=== PATIENT | male | born 1960 | race Caucasian/White ===

== ENCOUNTER 2018-11-22 14:37 | Inpatient (IN) ==
[2018-11-22 14:52] VITALS: BMI 34.2
[2018-11-22 14:59] LABS: BASOPHILS # (AUTO) 0.1 X10^3/uL (0.0-0.1); BASOPHILS % (AUTO) 0.8 % (0.2-1.0); EOSINOPHILS # (AUTO) 0.1 x10^3/uL (0.0-0.2); EOSINOPHILS % (AUTO) 1.8 % (0.9-2.9); HEMATOCRIT 50.9 % (42.0-54.0); HEMOGLOBIN 17.4 g/dL (13.5-18.0); LYMPHOCYTES # (AUTO) 1.5 X10^3/uL (1.3-2.9); LYMPHOCYTES % (AUTO) 18.3 % (21.0-51.0); MEAN CORPUSCULAR HGB CONC 34.1 g/dL (33.0-35.0); MEAN CORPUSCULAR VOLUME 93.9 fL (80.0-100.0); MEAN PLATELET VOLUME 7.6 fL (7.4-11.0); MONOCYTES # (AUTO) 0.8 x10^3/uL (0.3-0.8); MONOCYTES % (AUTO) 9.9 % (0.0-13.0); NEUTROPHILS # (AUTO) 5.7 x10^3/uL (2.2-4.8); NEUTROPHILS % (AUTO) 69.2 % (42.0-75.0); PLATELET COUNT 202 X10^3/uL (150.0-450.0); RED BLOOD COUNT 5.43 X10^6/uL (4.7-6.0); RED CELL DISTRIBUTION WIDTH 16.1 % (11.6-16.5); WHITE BLOOD COUNT 8.2 X10^3/uL (3.6-10.0)
[2018-11-22] MEDS ORDERED: NS 1000 ML 1,000 ML ONE (15:04)
[2018-11-22 15:20] LABS: BLOOD UREA NITROGEN 36 mg/dL (7-18); CALCIUM 9.7 mg/dL (8.5-10.1); CARBON DIOXIDE 25.7 mmol/L (21-32); CHLORIDE 102 mmol/L (98-107); COR NA(FOR HYPERGLY) 139 mmol/L (136-145); CREATININE 1.19 mg/dL (0.70-1.30); SODIUM 139 mmol/L (136-145); TROPONIN I 0.04 ng/mL (0-1.5); eGFR NON BLACK RACES > 60 (>60)
--- NOTE | 2018-11-22 15:21 | RAD ---
History: Atrial fib and shortness of breath Study: Portable AP chest Comparison: CT chest dated November 13 Findings: There is mild cardiomegaly. The lungs are hyperinflated and grossly clear. There is no edema or effusion evident. Impression: Mild cardiomegaly and probable COPD. No definite acute disease. Reported By:
[2018-11-22 15:22] LABS: ALANINE AMINOTRANSFERASE 43 Units/L (12-78); ALKALINE PHOSPHATASE 103 Units/L (46-116); ASPARTATE AMINO TRANSFERASE 27 Units/L (15-37); CKMB % 2.6 % (<4); CREATINE KINASE 78 Units/L (39-308); MAGNESIUM 2.2 mg/dL (1.7-2.9); TOTAL PROTEIN 7.5 g/dL (6.4-8.2)
[2018-11-22] MEDS ORDERED: CARDIZEM INJ 50 MG VIAL IVP ONE ×2 (15:28→16:34)
[2018-11-22] MEDS ORDERED: CARDIZEM INJ 50 MG VIAL ONE (15:30)
[2018-11-22] MEDS ORDERED: NS 100 ML IV 100 ML ONE (15:48)
[2018-11-22] MEDS ORDERED: CARDIZEM INJ 125 MG VIAL ONE (15:48)
[2018-11-22] MEDS: CARDIZEM INJ 125 MG VIAL 125 MG in NS 100 ML IV 100 ML IV PRN ×2 (15:55→23:39)
[2018-11-22] MEDS ORDERED: NS 1000 ML 1,000 ML IV SCH (16:00)
--- NOTE | 2018-11-22 16:16 | DR.ARRHYTH ---
HPI Time Seen Time Seen by Provider: 11/22/18 14:53 PCP Primary Care Physician: WHIT PAINTER Complaint Chief Complaint Doctor Comments: Patient was sent to get a cardiac echo per primary care physician. He was noted to be in A.Fib with RVR. He was sent to the ED for evauation. Patient admits to a history of lung disease and two pack per days for twenty plus years. Chief Complaint:: PT. WAS HERE FOR AN OUT-PATIENT ECHO. PT. NOTED TO BE IN A- FIB, NEW ONSET. PT. BROUGHT TO THE ER FOR FURTHER EVALUATION. PT. STATES HE HAS HAD SHORTNESS OF BREATH SINCE AUGUST. DENIES CHEST PAIN. Source History Provided: Patient Mode of Arrival Mode of Arrival: Ambulatory Timing Onset of Chief Complaint: 11/22/18 Came on: Gradually Symptoms: Present Now Duration Duration: Since Onset Context Onset: At Rest and With Light Exertion Possible Medication-Induced: Yes Possible Drug-Induced: No History: None Severity Severity: Rapid If Chest Pain Duration since onset: Weeks PMH PMH Past Medical History: Yes Past Medical History: CHF, Dyslipidemia and Hypertension Past Surgical History: Yes Surgical History: Other Past Surgical History Comment: RIGHT KNEE Family History History of Family Medical Conditions: Yes Family Medical History: Hypertension Social History Does patient currently use any type of tobacco product: No Have you used tobacco products in the last 12 months: No Type of Tobacco Use: None Does any household member use tobacco: No Alcohol Use: None Do you use any recreational Drugs:: No Lives With: Family Lives Where: Home infectious screening In the last 2 months have you had wt loss of >10#?: NO Have you had fever, night sweats or hemotysis?: No Have you traveled outside the country in the last 6 months?: No Isolation: Standard ROS Review of Systems Constitutional: No Symptoms Reported Eyes: No Symptoms Reported ENTM: No Symptoms Reported Respiratoy: Dry Cough (years) and Short of Breath (years); negative Hemoptysis Cardiovascular: Palpitations Gastrointestinal/Abdominal: No Symptoms Reported Genitourinary: No Symptoms Reported Neurological: No Symptoms Reported Musculoskeletal: No Symptoms Reported Integumentary: No Symptoms Reported Hematologic/Lymphatic: No Symptoms Reported Endocrine: No Symptoms Reported Psychiatric: No Symptoms Reported All Other Systems: Reviewed and Negative PE Vitals Vital Signs: Pulse Pulse Resp BP BP Pulse Ox 11/22/18 16:00 113 H 23 116/80 95 11/22/18 15:31 122 H 21 151/77 96 11/22/18 15:10 144 H 17 156/95 97 11/22/18 14:49 158 H 22 141/97 97 General Limitations: No Limitations General Appearance: Alert and In No Apparent Distress Head Head Exam: Normal Inspection, Atraumatic and Normocephalic Eyes Eyes: Normal and Pale Conjunctiva Eye exam: Normal Appearance, PERRL and EOMI; negative Scleral Icterus, Conjunctival Injection, Nystagmus, Mydrasis, Periorbital Swelling and Periorbital Tenderness ENT ENT Exam: Normal Exam, Normal Oropharynx, Normal External Ear Exam, Mucous Membranes Moist and TM's Normal Bilaterally Neck Neck Exam: Normal Inspection, Full ROM and Trachea Midline; negative Tenderness, Meningismus and Lymphadenopathy Chest Chest Inspection: Normal Inspection and Symmetric Chest Wall Rise Respiratory Respiratory Exam: Prolonged Expiratory Phase; negative Normal Lung Sounds Bilat (wheeze bilaterally), Accessory Muscle Use, Chest Wall Tenderness, Respiratory Distress and Stridor Respiratory Exam: Bilateral: Wheezing Cardiovascular Cardiovascular Exam: Tachycardia, Irregular Rhythm, Normal Heart Sounds and JVD; negative Systolic Murmur, Diastolic Murmur, Rubs, Gallop and Clicks Peripheral Pulse: Carotid (R): 3+ and Radial (R): 3+ Abdominal Exam Abdominal Exam: Normal Inspection, Normal Bowel Sounds, Soft, Distention, Dimnished Bowel Sounds and Hypoactive Bowel Sounds; negative Tenderness, Guarding, Rebound, Rigidity, Hyperactive Bowel Sounds, Organomegaly, Trauma, Ascites and Hernia Abdominal Tenderness: negative RUQ, RLQ, LUQ, LLQ, Epigastrium and Suprapubic Rectal Rectal Exam: negative Deferred Extremities Extremities Exam: Normal Inspection, Full ROM and Normal Capillary Refill; negative Edema and Joint Swelling Back Back Exam: Normal Inspection and Full ROM; negative Tenderness, (R) CVA Tenderness, (L) CVA Tenderness, Muscle Spasm, Paraspinal Tenderness, Vertebral Tenderness and Rashes Neurologic Neurological Exam: Alert, Oriented X3, CN II-XII Intact, Normal Gait and Reflexes Normal Psychiatric Psychiatric Exam: Normal Affect and Normal Mood; negative Homicidal Ideation and Suicidal Ideation Skin Skin Exam: Warm, Dry, Intact and Normal Color MDM Differential Diagnosis Atrial: Atrial Fibrillation, Atrial Flutter, PAC's and Sinus Tachycardia Miscellaneous: Hyperthyroidism COURSE Treatment Treatment: Normal saline, cardiazem, ROR Labs Reviewed Result Diagrams: 11/22/18 14:45 11/22/18 14:45 Laboratory: WBC 8.2 X10^3/uL (3.6-10.0) 11/22/18 14:45 RBC 5.43 X10^6/uL (4.7-6.0) 11/22/18 14:45 Hgb 17.4 g/dL (13.5-18.0) 11/22/18 14:45 Hct 50.9 % (42.0-54.0) 11/22/18 14:45 MCV 93.9 fL (80.0-100.0) 11/22/18 14:45 MCH 32.0 pg (27.0-34.0) 11/22/18 14:45 MCHC 34.1 g/dL (33.0-35.0) 11/22/18 14:45 RDW 16.1 % (11.6-16.5) 11/22/18 14:45 Plt Count 202 X10^3/uL (150.0-450.0) 11/22/18 14:45 MPV 7.6 fL (7.4-11.0) 11/22/18 14:45 Neut % (Auto) 69.2 % (42.0-75.0) 11/22/18 14:45 Lymph % (Auto) 18.3 % (21.0-51.0) L 11/22/18 14:45 Lee % (Auto) 9.9 % (0.0-13.0) 11/22/18 14:45 Eos % (Auto) 1.8 % (0.9-2.9) 11/22/18 14:45 Baso % (Auto) 0.8 % (0.2-1.0) 11/22/18 14:45 Neut # (Auto) 5.7 x10^3/uL (2.2-4.8) H 11/22/18 14:45 Lymph # (Auto) 1.5 X10^3/uL (1.3-2.9) 11/22/18 14:45 Lee # (Auto) 0.8 x10^3/uL (0.3-0.8) 11/22/18 14:45 Eos # (Auto) 0.1 x10^3/uL (0.0-0.2) 11/22/18 14:45 Baso # (Auto) 0.1 X10^3/uL (0.0-0.1) 11/22/18 14:45 Absolute Nucleated RBC 0.1 /100WBC 11/22/18 14:45 INR Target Range - 11/22/18 14:45 INR 1.09 (0.8-1.3) 11/22/18 14:45 APTT 27.4 SECONDS (22.9-36.5) 11/22/18 14:45 PTT Comment - 11/22/18 14:45 Sodium 139 mmol/L (136-145) 11/22/18 14:45 Corrected Sodium 139 mmol/L (136-145) 11/22/18 14:45 Potassium 4.3 mmol/L (3.5-5.1) 11/22/18 14:45 Chloride 102 mmol/L (98-107) 11/22/18 14:45 Carbon Dioxide 25.7 mmol/L (21-32) 11/22/18 14:45 BUN 36 mg/dL (7-18) H 11/22/18 14:45 Creatinine 1.19 mg/dL (0.70-1.30) 11/22/18 14:45 Est GFR (MDRD) Af Amer > 60 (>60) 11/22/18 14:45 Est GFR (MDRD) Non-Af > 60 (>60) 11/22/18 14:45 Glucose 118 mg/dL (65-99) H 11/22/18 14:45 Calcium 9.7 mg/dL (8.5-10.1) 11/22/18 14:45 Corrected Calcium TNP 11/22/18 14:45 Magnesium 2.2 mg/dL (1.7-2.9) 11/22/18 14:45 Total Bilirubin 1.70 mg/dL (0.2-1.0) H 11/22/18 14:45 AST 27 Units/L (15-37) 11/22/18 14:45 ALT 43 Units/L (12-78) 11/22/18 14:45 Alkaline Phosphatase 103 Units/L (46-116) 11/22/18 14:45 Creatine Kinase 78 Units/L (39-308) 11/22/18 14:45 CK-MB (CK-2) 2.0 ng/mL (0-4.0) 11/22/18 14:45 CK/CKMB % Calc 2.6 % (<4) 11/22/18 14:45 Troponin I 0.04 ng/mL (0-1.5) 11/22/18 14:45 Total Protein 7.5 g/dL (6.4-8.2) 11/22/18 14:45 Albumin 4.0 g/dL (3.4-5.0) 11/22/18 14:45 Globulin 3.5 g/dL (2.5-4.5) 11/22/18 14:45 Albumin/Globulin Ratio 1.1 Ratio (1.1-2.1) 11/22/18 14:45
[2018-11-22] MEDS ORDERED: CARDIZEM INJ 125 MG VIAL 125 MG in NS 100 ML IV 100 ML IV PRN (16:34)
[2018-11-22] MEDS ORDERED: XOPENEX 1.25 MG/3 ML NEBULE NEB PRN (18:18)
[2018-11-22] MEDS ORDERED: AMBIEN PO SCH (21:00)
[2018-11-22 21:13] LABS: CKMB % 2.8 % (<4); CREATINE KINASE MB 1.7 ng/mL (0-4.0); TROPONIN I 0.04 ng/mL (0-1.5)
[2018-11-22] MEDS: LASIX PO SCH (22:13)
[2018-11-23 05:52] LABS: BASOPHILS # (AUTO) 0.1 X10^3/uL (0.0-0.1); BASOPHILS % (AUTO) 0.9 % (0.2-1.0); EOSINOPHILS # (AUTO) 0.2 x10^3/uL (0.0-0.2); EOSINOPHILS % (AUTO) 2.3 % (0.9-2.9); HEMATOCRIT 45.5 % (42.0-54.0); HEMOGLOBIN 15.5 g/dL (13.5-18.0); LYMPHOCYTES # (AUTO) 1.2 X10^3/uL (1.3-2.9); LYMPHOCYTES % (AUTO) 15.5 % (21.0-51.0); MEAN CORPUSCULAR HEMOGLOBIN 32.2 pg (27.0-34.0); MEAN CORPUSCULAR HGB CONC 34.1 g/dL (33.0-35.0); MEAN CORPUSCULAR VOLUME 94.5 fL (80.0-100.0); MEAN PLATELET VOLUME 7.8 fL (7.4-11.0); MONOCYTES # (AUTO) 0.9 x10^3/uL (0.3-0.8); MONOCYTES % (AUTO) 10.6 % (0.0-13.0); NEUTROPHILS # (AUTO) 5.7 x10^3/uL (2.2-4.8); NEUTROPHILS % (AUTO) 70.7 % (42.0-75.0); PLATELET COUNT 192 X10^3/uL (150.0-450.0); RED BLOOD COUNT 4.81 X10^6/uL (4.7-6.0); RED CELL DISTRIBUTION WIDTH 15.9 % (11.6-16.5)
[2018-11-23 06:30] LABS: ALANINE AMINOTRANSFERASE 35 Units/L (12-78); ALBUMIN 3.5 g/dL (3.4-5.0); ALKALINE PHOSPHATASE 92 Units/L (46-116); ASPARTATE AMINO TRANSFERASE 20 Units/L (15-37); BLOOD UREA NITROGEN 35 mg/dL (7-18); CALCIUM 9.2 mg/dL (8.5-10.1); CARBON DIOXIDE 23.7 mmol/L (21-32); CHLORIDE 103 mmol/L (98-107); COR NA(FOR HYPERGLY) 139 mmol/L (136-145); CREATINE KINASE 43 Units/L (39-308); CREATINE KINASE MB 1.3 ng/mL (0-4.0); CREATININE 0.96 mg/dL (0.70-1.30); SODIUM 138 mmol/L (136-145); TOTAL PROTEIN 6.6 g/dL (6.4-8.2); TROPONIN I 0.04 ng/mL (0-1.5); eGFR NON BLACK RACES > 60 (>60)
[2018-11-23] MEDS ORDERED: CRESTOR TAB 10 MG PO SCH (09:00)
[2018-11-23] MEDS: LASIX PO SCH (09:15)
[2018-11-23] MEDS: CARDIZEM INJ 125 MG VIAL 125 MG in NS 100 ML IV 100 ML IV PRN (12:29)
[2018-11-23] MEDS ORDERED: BENICAR TAB 40 MG PO ONE (17:33)
[2018-11-23] MEDS ORDERED: BENICAR TAB 40 MG PO SCH (18:00)
[2018-11-23 18:23] VITALS: BP 152/83
== END 2018-11-23 18:10 | disposition short-term general hospital (02) | DRG 310 ==
LOC: ER 14:37 → ICU 16:31
PROVIDERS: ADMIT Internal Medicine; ATTEND Internal Medicine
DX: I10 Essential (primary) hypertension; R06.02 Shortness of breath; R93.1 Abnormal findings on diagnostic imaging of heart and coronary circulation; E78.2 Mixed hyperlipidemia; I48.91 Unspecified atrial fibrillation; R93.5 Abnormal findings on diagnostic imaging of other abdominal regions, including retroperitoneum; R91.1 Solitary pulmonary nodule
CPT/HCPCS: 36415; 71010; 71045; 80053; 82550; 82553; 83735; 84484; 85025; 85378; 85610; 85730; 93005; 93041; 96365; 96374; 96375; 99285; A4222; J3490; J7030; J7050